=== PATIENT | male | born 1965 | race Caucasian/White ===

== ENCOUNTER 2019-10-14 03:37 | Emergency (ER) | payer MEDICAID, OTHER ==
[~2019-10-14] VITALS: Ht 180.3 cm; Wt 80.0 kg
[2019-10-14] MEDS ORDERED: HYDROCODONE/ACETAMINOPHEN 5/325MG TABLET PO ONE (04:30)
[2019-10-14 04:31] VITALS: BP 155/104
[2019-11-19] MEDS ORDERED: INSU100I28 SQ (06:38)
[2019-11-19] MEDS ORDERED: IBUP-2030 PO (06:38)
[2019-11-20] MEDS ORDERED: METF-416 MT (15:26)
== END 2019-10-14 04:35 | disposition home or self-care (01) ==
LOC: ER 03:37
DX: K04.7 Periapical abscess without sinus (principal); R05 Cough; Z71.89 Other specified counseling; F17.210 Nicotine dependence, cigarettes, uncomplicated
CPT/HCPCS: 99283

== ENCOUNTER 2020-01-25 11:28 | Inpatient (IN) | payer MEDICAID ==
[~2020-01-25] VITALS: Ht 180.3 cm; Wt 74.8 kg
[~2020-01-25 11:28] MED LIST: IBUP-2030 PO; INSU100I28 SQ; METF-416 MT; OMEP20CA14 MT
[2020-01-25] MEDS ORDERED: VISCOUS LIDOCAINE 2% 15 ML UDC PO STA (11:46)
[2020-01-25] MEDS ORDERED: MORPHINE SULFATE 4 MG/ML CPJ (NOT FOR IM USE) IV STA (11:46)
[2020-01-25] MEDS ORDERED: FAMOTIDINE 20MG/2ML VIAL IV STA (11:46)
[2020-01-25] MEDS ORDERED: DICYCLOMINE 10 MG/5 ML ORAL SYR PO STA (11:46)
[2020-01-25] MEDS ORDERED: MAGNESIUM/ALUMINUM HYDROXIDE/SIMETHICONE 30ML UDC PO STA (11:46)
[2020-01-25] MEDS ORDERED: ONDANSETRON HCL 4MG/2ML INJ IV STA (11:46)
[2020-01-25 12:12] LABS: BASOPHILS % 0.5 % (0.0-2.0); EOSINOPHILS % 0.4 % (0.0-5.0); HEMATOCRIT. 45.5 % (42.0-52.0); HEMOGLOBIN. 15.3 g/dL (14.0-18.0); LYMPHOCYTES % 13.8 % (20.0-50.0); MEAN CORPUSCULAR HEMOGLOBIN 29.4 pg (28.0-32.0); MEAN CORPUSCULAR VOLUME 87.3 fL (80.0-94.0); MONOCYTES % 3.7 % (2.0-8.0); NEUTROPHILS % 81.6 % (40.0-76.0); PLATELET 319 x1000/uL (130-400); RED CELL DISTRIBUTION WIDTH 13.8 % (11.6-14.6)
[2020-01-25 12:16] LABS: CHLORIDE 100 mEq/L (98-107)
[2020-01-25 12:19] LABS: PROTHROMBIN TIME 10.6 sec (9.6-11.0)
[2020-01-25] MEDS ORDERED: SODIUM CHLORIDE 0.9% 1,000 ML IV SCH (14:47)
[2020-01-25 15:00] VITALS: BP 155/105
[2020-01-25] MEDS ORDERED: ONDANSETRON HCL 4MG/2ML INJ IV PRN (15:00)
[2020-01-25] MEDS ORDERED: CLONIDINE 0.1MG TABLET PO PRN (15:00)
[2020-01-25] MEDS ORDERED: ACETAMINOPHEN 325MG TABLET PO PRN (15:00)
[2020-01-25] MEDS ORDERED: MORPHINE SULFATE 2 MG/ML CPJ (NOT FOR IM USE) IV PRN (15:00)
[2020-01-25] MEDS ORDERED: DIPHENHYDRAMINE 50MG/ML VIAL IV PRN (15:00)
[2020-01-25 15:44] LABS: PHOSPHORUS 2.6 mg/dL (2.5-4.9)
[2020-01-25] MEDS ORDERED: DOCUSATE SODIUM 250MG CAPSULE PO NR (17:00)
[2020-01-25 17:35] VITALS: BP 155/105
[2020-01-25] MEDS: METOCLOPRAMIDE HCL 10MG/2ML VIAL IV SCH ×2 (17:50→23:49)
[2020-01-25 20:00] VITALS: BP 151/105
[2020-01-26] VITALS: BP 129/89
[2020-01-26 04:00] VITALS: BP 121/88
[2020-01-26] MEDS ORDERED: DEXTROSE 50% WATER 50ML SYRINGE IV PRN (04:45)
[2020-01-26] MEDS: METOCLOPRAMIDE HCL 10MG/2ML VIAL IV SCH ×3 (06:13→18:00)
[2020-01-26] MEDS: BLOOD SUGAR DIAGNOSTIC STRIP TEST SCH ×3 (06:23→18:06)
[2020-01-26 07:16] LABS: CHLORIDE 108 mEq/L (98-107)
[2020-01-26] MEDS: INSULIN LISPRO 100 UNITS/ML SUBCUT SCH ×4 (07:18→18:47)
[2020-01-26 07:19] LABS: AMYLASE 65 IU/L (25-115)
[2020-01-26 07:25] LABS: LDL CHOLESTEROL 56 mg/dL (5-100)
[2020-01-26 07:26] LABS: HDL CHOLESTEROL 44 mg/dL (40-59)
[2020-01-26 07:33] LABS: HEPATITIS B SURFACE ANTIGEN NEGATIVE
[2020-01-26 08:00] VITALS: BP 132/91
[2020-01-26 08:03] LABS: HEPATITIS A AB IGM NEGATIVE (NEGATIVE)
[2020-01-26 08:04] LABS: BASOPHILS % 0.4 % (0.0-2.0); EOSINOPHILS % 1.1 % (0.0-5.0); HEMATOCRIT. 41.1 % (42.0-52.0); HEMOGLOBIN. 13.7 g/dL (14.0-18.0); LYMPHOCYTES % 21.8 % (20.0-50.0); MEAN CORPUSCULAR HEMOGLOBIN 29.2 pg (28.0-32.0); MEAN CORPUSCULAR VOLUME 87.3 fL (80.0-94.0); MEAN PLATELET VOLUME 9.3 fl (7.4-10.4); MONOCYTES % 5.7 % (2.0-8.0); PLATELET 260 x1000/uL (130-400); RED CELL DISTRIBUTION WIDTH 13.6 % (11.6-14.6)
[2020-01-26] MEDS ORDERED: DOCUSATE SODIUM 250MG CAPSULE PO PRN (09:00)
[2020-01-26 12:00] VITALS: BP 120/87
[2020-01-26] MEDS ORDERED: SORBITOL 70% SOLN 30ML PO SCH (12:15)
[2020-01-26 16:00] VITALS: BP 139/97
[2020-01-26 16:40] VITALS: BP 139/97
== END 2020-01-26 18:48 | disposition home or self-care (01) | DRG 282 ==
LOC: ER 11:35 → EDBEDREQ 13:51 → 6EST 14:23 → EDBEDREQ 14:27 → EDBEDREQTM 14:27 → ENRESERV 15:22
PROVIDERS: ADMIT Internal Medicine; ATTEND Internal Medicine
DX: K85.90 Acute pancreatitis without necrosis or infection, unspecified (principal); N17.9 Acute kidney failure, unspecified; K59.00 Constipation, unspecified; E87.1 Hypo-osmolality and hyponatremia; E11.65 Type 2 diabetes mellitus with hyperglycemia; K31.84 Gastroparesis; E11.43 Type 2 diabetes mellitus with diabetic autonomic (poly)neuropathy; I10 Essential (primary) hypertension; R74.0 Nonspecific elevation of levels of transaminase and lactic acid dehydrogenase [LDH]; F19.11 Other psychoactive substance abuse, in remission; B19.20 Unspecified viral hepatitis C without hepatic coma; Z79.84 Long term (current) use of oral hypoglycemic drugs; Z79.899 Other long term (current) drug therapy; Z79.4 Long term (current) use of insulin
CPT/HCPCS: 36415; 74018; 74176; 80053; 80061; 80076; 82150; 82248; 82962; 83735; 84100; 85025; 86705; 86709; 86803; 87340; 93005; 93970; 99285; J1815; J2270; J2405; J2765; J3490